=== PATIENT | female | born 1980 | race Caucasian/White ===

== ENCOUNTER 2020-11-27 02:27 | Outpatient (CLI) | payer OTHER, SELFPAY ==
[2020-11-27 19:32] LABS: SARS-CoV-2 RNA PCR Negative
== END 2020-11-27 02:28 | disposition home or self-care (01) ==
LOC: ANHCOVIDDT 02:27
PROVIDERS: PCP Family Medicine; Visit Provider Plastic Surgery
DX: Z01.812 Encounter for preprocedural laboratory examination (principal); Z20.822 Contact with and (suspected) exposure to COVID-19
CPT/HCPCS: C9803; U0003

== ENCOUNTER 2020-12-01 02:45 | Day surgery (SDC) | payer OTHER, SELFPAY ==
[2020-11-25 10:57] VITALS: BMI 36.3
--- NOTE | 2020-12-01 07:44 | WPDHPUPDATE1 ---
History and Physical Update Update Date/Time: 12/01/20 07:44 History and Physical has been reviewed, including an updated exam of the patient. There are NO changes in the patient's condition. Risks, benefits, and alternatives have been discussed and questions answered. Patient agrees to proceed with procedure.
[2020-12-01 15:24] VITALS: BP 137/100; PULSE 95; RESP 16; TEMP 36.1; O2SAT 95
[2020-12-01 16:40] VITALS: BP 151/90; PULSE 124; RESP 14; O2SAT 100
[2020-12-01] MEDS: LIDO 1%/EPINEPHRINE 1:100,000 50 ML VIAL INFILTRATE (16:43)
[2020-12-01] MEDS: BACITRACIN OINTMENT 15 GM TUBE 1 APPLIC TOPICAL (16:45)
[2020-12-01 16:50] VITALS: BP 127/76; PULSE 85; RESP 14; O2SAT 100
[2020-12-01 16:55] VITALS: BP 114/71; PULSE 66; RESP 14; O2SAT 99
[2020-12-01 17:05] VITALS: BP 137/78; PULSE 91; RESP 14
--- NOTE | 2020-12-01 17:11 | PM.OP ---
Procedure Note - Brief Procedure Note - Brief Date of procedure: 12/01/20 Pre-op diagnosis: left carpal tunnel syndrome Post-op diagnosis: same Procedure performed: L OCTR Anesthesia: local Surgeon: Jesus Alberto Mendez MD Tourniquet time (min): 7 Drains: No Packing: No Pathology: none sent Complications: No immediate complications Condition: stable Disposition: same day
--- NOTE | 2020-12-01 20:43 | PM.PROC ---
Procedure Note - Detailed Date of procedure: 12/01/20 Pre-op diagnosis: left carpal tunnel syndrome Post-op diagnosis: same Procedure performed: Left open carpal tunnel release Description of procedure: The site on the patient's left hand was marked while she was in the operating room. She is under local anesthetic. The extremity was prepped and draped in usual fashion 1% lidocaine with epinephrine was infiltrated. The tourniquet was inflated to 250 mmHg. The incision was made in the palm as marked and dissection was carried bluntly through the subcutaneous tissue to the palmar fascia. This and the carpal ligament were incised opening the canal. Under 3 point retraction the ligament was divided distally and proximally to completely release it. The skin wound was closed with interrupted 5 0 nylon suture. No unusual anatomy was noted. She is discharge instructions wound care and follow-up. The no prescription for pain medication was prescribed at her request. Surgeon: Jesus Alberto Mendez MD
== END 2020-12-01 17:35 | disposition home or self-care (01) ==
PROVIDERS: PCP Family Medicine; Visit Provider Plastic Surgery
PROC: (CPT 64721; principal; 2020-12-01 15:00)
DX: G56.02 Carpal tunnel syndrome, left upper limb (principal)
CPT/HCPCS: 64721; A9270

== ENCOUNTER 2020-12-24 14:31 | Outpatient (CLI) | payer OTHER, SELFPAY ==
--- NOTE | 2020-12-24 | ECHO_ITS ---
Patient Info Name: Evangelina Romero Age: 40 years : 1980 Gender: Female Ht: 62 in Wt: 200 lbs BSA: 2.04 m2 HR: 86 bpm BP: 150 / 80 mmHg Technical Quality: Good Exam Date: 12/24/2020 3:02 PM Exam Location: [facility] Patient Status: Outpatient Admit Date: 12/24/2020 Staff Ordering Physician: HuaMaribell NP [employer] Teacher: Ritu Bernstein RDCS Attending Provider: HuaMaribell NP Exam Type: CA echo doppler color flow Study Info Indications - abnormal heart rhythm Complete two-dimensional, color flow and Doppler transthoracic echocardiogram is performed. Summary 1. Complete two-dimensional, color flow and Doppler transthoracic echocardiogram is performed. 2. Left ventricular chamber dimension is mildly enlarged. 3. Left ventricular systolic function is normal, estimated at 50-55%. 4. The left ventricular diastolic function is normal. 5. E/e' 7 is not elevated. 6. No pulmonary hypertension, estimated pulmonary arterial systolic pressure is 30 mmHg. 7. Normal inferior vena cava with >50% collapse upon inspiration consistent with normal right atrial pressure, 5 mmHg. Left Ventricle E/e' 7 is not elevated. Left ventricular chamber dimension is mildly enlarged. Left ventricular systolic function is normal, estimated at 50-55%. The left ventricular diastolic function is normal. Right Ventricle Right ventricular chamber dimension is normal. Right ventricular systolic function is normal. Left Atria Left atrial chamber dimension is normal. Right Atria Right atrial chamber dimension is normal. Aortic Valve The aortic valve is trileaflet. There is no aortic valve stenosis. There is no aortic valve regurgitation. Pulmonic Valve There is no pulmonic regurgitation. Mitral Valve There is no mitral valve stenosis. There is no mitral valve regurgitation. Tricuspid Valve There is no tricuspid valve regurgitation. No pulmonary hypertension, estimated pulmonary arterial systolic pressure is 30 mmHg. Pericardium/Pleural There is no pericardial effusion. Inferior Vena Cava Normal inferior vena cava with >50% collapse upon inspiration consistent with normal right atrial pressure, 5 mmHg. Aorta The aortic root size at the sinus of Valsalva is normal. Left Ventricular Outflow Tract Name Value Normal LVOT 2D LVOT Diameter 2.0 cm LVOT Doppler LVOT Peak Gradient 5 mmHg LVOT Mean Gradient 3 mmHg LVOT VTI 21 cm LVOT VTI/AV VTI Ratio 0.7 LVOT Stroke Volume 66 ml LVOT CO 14.8 l/min LVOT CI 7.3 l/min/m2 Pulmonic Valve Name Value Normal PV Doppler PV Peak Gradient 4 mmHg Mitral Valve ----
== END 2020-12-24 14:32 | disposition home or self-care (01) ==
PROVIDERS: PCP Family Medicine; Visit Provider Nurse Practitioner Family
DX: I49.3 Ventricular premature depolarization (principal)
CPT/HCPCS: 93306

== ENCOUNTER 2025-04-30 08:29 | Outpatient (CLI) | payer OTHER, SELFPAY ==
--- NOTE | ~2025-04-30 | XR_ITS ---
XR shoulder RT min 2V 04/30/2025 08:48 Indication: Acute shoulder pain Procedure: 4 views right shoulder Comparison: No prior studies for comparison. Findings: There is osteoarthritis of the acromioclavicular joint. No fracture, subluxation or disloca tion. No soft tissue abnormality. No foreign bodies. Impression: 1: Mild osteoarthritis of the right acromioclavicular joint. Reviewed, dictated and finalized at location [] Impression: 1: Mild osteoarthritis of the right acromioclavicular joint.
== END 2025-04-30 08:30 | disposition home or self-care (01) ==
PROVIDERS: PCP Nurse Practitioner Family; Visit Provider Nurse Practitioner Family
DX: M19.011 Primary osteoarthritis, right shoulder (principal)
CPT/HCPCS: 73030